=== PATIENT | male | born 1995 | race Caucasian/White ===

== ENCOUNTER 2023-08-22 17:49 | Emergency (ER) | payer BC, OTHER ==
[~2023-08-22 17:49] MED LIST: Iopamidol-370 76% 500 ML MDV (1 ML CHARGE) ONE
[2023-08-22] MEDS ORDERED: Morphine 4 MG/ML VIAL ONE (18:20)
[2023-08-22] MEDS ORDERED: Ketorolac Tromethamine 30 MG (1 mL) VIAL ONE (18:20)
[2023-08-22] MEDS ORDERED: Ondansetron PF 4 MG/2 ML Vial ONE (18:25)
[2023-08-22 18:33] LABS: #Monocytes 0.6 thou/uL (0.11-0.59); #Neutrophils 10.4 thou/uL (1.40-6.50); %Basophils 0.2 % (0.0-1.0); %Eosinophils 0.1 % (0.0-10.0); %Lymphocytes 12.3 % (21.0-51.0); %Neutrophils 81.7 % (42.0-75.0); Hemoglobin 15.3 g/dL (14.0-18.0); Mean Corpuscular HGB CONC 33.3 g/dL (32.0-36.0); Mean Corpuscular Hemoglobin 29.4 pg (27.0-31.0); Mean Corpuscular Volume 88.3 fl (78.0-98.0); Mean Platelet Volume 9.3 fL (7.4-10.4); Platelet Count 357 10x3/uL (130-400); RBC Distribution Width 13.2 % (11.5-14.5); Red Blood Cell (RBC) Count 5.21 mill/uL (4.70-6.10); White Blood Cell (WBC) Count 12.7 10x3/uL (4.8-10.8)
[2023-08-22 18:56] LABS: Acetaminophen Less than 10 mcg/mL (10.0-30.0); Alcohol 183.2 mg/dL (Less than 10); Lipase 29 U/L (8-78); Salicylate Less than 8.0 mg/dL (15.0-30.0)
[2023-08-22 18:57] LABS: ALT (SGPT) 29 U/L (8-55); AST (SGOT) 42 U/L (5-34); Albumin 5.1 g/dL (3.5-5.0); Alkaline Phosphatase 61 U/L (40-110); Anion Gap 17 mmol/L (10-20); BUN (Urea Nitrogen) 13 mg/dL (8.9-20.6); Bilirubin, Total 0.4 mg/dL (0.2-1.2); Calc. Creatinine Clearance 0 mL/min (70-130); Calcium 9.5 mg/dL (7.8-10.44); Carbon Dioxide 23 mmol/L (22-29); Chloride 107 mmol/L (98-107); Estimated GFR 120; Globulin 2.5 g/dL (2.4-3.5); Glucose 78 mg/dL (70-105); Potassium 4.3 mmol/L (3.5-5.1); Protein, Total 7.6 g/dL (6.0-8.3); Sodium 143 mmol/L (136-145)
[2023-08-22 19:05] LABS: Troponin I Less than 0.010 ng/mL (< 0.028)
[2023-08-22] MEDS ORDERED: Boostrix 0.5 ML (Tdap) VIAL (>/=7 yrs of age) ONE (19:25)
[2023-08-22] MEDS ORDERED: Bupivacaine 0.25% 10 ML VIAL ONE (19:25)
== END 2023-08-22 19:50 | disposition home or self-care (01) ==
LOC: ERS 17:49
DX: S51.812A Laceration without foreign body of left forearm, initial encounter (principal); V69.69XA Unspecified occupant of heavy transport vehicle injured in collision with other motor vehicles in traffic accident, initial encounter; W22.10XA Striking against or struck by unspecified automobile airbag, initial encounter; Z55.6 Problems related to health literacy; Z23 Encounter for immunization; Z87.891 Personal history of nicotine dependence
CPT/HCPCS: 12001; 70450; 71260; 72125; 74177; 80053; 80307; 83690; 84484; 85025; 90471; 90715; 93005; 96361; 96374; 96375; J0665; J1885; J2270; J2405; Q9967